=== PATIENT | female | born 1980 | race Caucasian/White ===

== ENCOUNTER → 2016-10-21 | Outpatient (CLI) | payer BC ==
[~2016-10-21] MED LIST: Gadobenate Dimeglumine 529 MG/ML 20 ML SDV IV ONE
--- NOTE | 2016-10-21 15:21 | MR ---
EXAMINATION: MRI lumbar spine with and without contrast HISTORY: Pain COMPARISON: 12/31/2015 TECHNIQUE: Multiplanar and multisequence images obtained of the lumbar spine before and following ad ministration of 22 mL of Gadavist. FINDINGS: The lumbar spinal alignment is normal. The vertebral body heights appear well maintained. There is disc space narrowing at L5-S1. The distal spinal cord appears normal and the conus terminat es at L1. The SI joints are symmetric. The visualized retroperitoneal structures appear normal. Ther e is no abnormal enhancement. No evidence of a posterior epidural fluid collection. T12-L5: Unremarkable. L5-S1: There is a moderate right paracentral disc protrusion abutting the traversing S1 nerve root. There is mild left neural foraminal stenosis. No significant spinal canal stenosis. IMPRESSION: 1. Moderate right paracentral disc protrusion at L5-S1 abutting the traversing S1 nerve root. 2. Otherwise no acute findings within the lumbar spine.
== END ==
LOC: MW.MRI 13:09
PROVIDERS: ATTEND Pain Medicine Pain Medicine
DX: M54.5 Low back pain (principal); M51.27 Other intervertebral disc displacement, lumbosacral region
CPT/HCPCS: 72158; A9577